=== PATIENT | female | born 2000 | race Two or more races ===

== ENCOUNTER 2019-03-08 16:28 | Emergency (ER) | payer MEDICAID, OTHER, SELFPAY ==
[~2019-03-08] VITALS: Ht 157.5 cm; Wt 74.3 kg
[2019-03-08 21:06] VITALS: BP 117/64
== END 2019-03-08 21:51 | disposition home or self-care (01) ==
LOC: ED 21:40
DX: O03.9 Complete or unspecified spontaneous abortion without complication (principal); O21.9 Vomiting of pregnancy, unspecified; Z3A.14 14 weeks gestation of pregnancy
CPT/HCPCS: 36415; 76801; 80048; 81001; 82040; 84702; 85025; 86901; 99284

== ENCOUNTER 2019-03-10 14:04 | Emergency (ER) | payer SELFPAY ==
[~2019-03-10] VITALS: Ht 157.5 cm; Wt 75.4 kg
[2019-03-10 14:36] VITALS: BP 106/52
== END 2019-03-10 15:45 | disposition home or self-care (01) ==
LOC: ED 15:24
DX: O03.4 Incomplete spontaneous abortion without complication (principal)
CPT/HCPCS: 36415; 80048; 82040; 84702; 85025; 99283